=== PATIENT | male | born 1975 | race Caucasian/White ===

== ENCOUNTER 2019-07-12 21:32 | Emergency (ER) | payer SELFPAY ==
[2019-07-12 21:50] VITALS: BP 133/81
[2019-07-13] MEDS ORDERED: cephALEXin 500 MG CAP PO STA (02:20)
--- NOTE | 2019-07-13 02:28 | Emergency Department Report ---
ED Lower Extremity HPI - General Chief Complaint: Wound/Laceration Stated Complaint: CUT BACK OF LEFT LEG Time Seen by Provider: 07/13/19 00:16 Source: patient Mode of arrival: Ambulatory Limitations: No Limitations - History of Present Illness MD Complaint: leg injury -: Sudden Injury: Leg: Left Type of Injury: laceration (WAS HIT BY AN air conditioner while he waS in tHE demolition stage of a renovation) Place: home Severity: mild Improves With: nothing Worsens With: nothing - Related Data Allergies Allergy/AdvReac Type Severity Reaction Status Date / Time iodine Allergy Swelling Verified 07/12/19 22:49 ED Review of Systems ROS: Stated complaint: CUT BACK OF LEFT LEG Other details as noted in HPI Comment: All other systems reviewed and negative ED Past Medical Hx - Past Medical History Previous Medical History?: No - Surgical History Past Surgical History?: Yes Additional Surgical History: Hernia repair - Social History Smoking Status: Current Every Day Smoker Substance Use Type: Marijuana ED Physical Exam - General Limitations: No Limitations General appearance: alert, in no apparent distress - Head Head exam: Present: atraumatic, normocephalic - Eye Eye exam: Present: normal appearance, PERRL, EOMI Pupils: Present: normal accommodation - ENT ENT exam: Present: normal exam, normal orophraynx, mucous membranes moist, TM's normal bilaterally - Neck Neck exam: Present: normal inspection, full ROM - Respiratory Respiratory exam: Present: normal lung sounds bilaterally. Absent: respiratory distress - Cardiovascular Cardiovascular Exam: Present: regular rate, normal rhythm. Absent: systolic murmur, diastolic murmur, rubs, gallop - GI/Abdominal GI/Abdominal exam: Present: soft, normal bowel sounds - Rectal Rectal exam: Present: deferred - Extremities Exam Extremities exam: Present: normal inspection, full ROM - Expanded Lower Extremity Exam Left Lower Leg exam: Present: tenderness, laceration (linear laceration to the l ateral aspect of the left lower leg full thickness involving some muscle but still has full range of motion of the foot. Pulses 2+ no foreign bodies were visualized laceration 8 cm) - Back Exam Back exam: Present: normal inspection - Neurological Exam Neurological exam: Present: alert, oriented X3 - Psychiatric Psychiatric exam: Present: normal affect, normal mood - Skin Skin exam: Present: warm, dry, intact, normal color. Absent: rash ED Course Vital Signs 07/12/19 21:49 Temperature 98.3 F Pulse Rate 83 Respiratory 18 Rate Blood Pressure 133/81 O2 Sat by Pulse 96 Oximetry - Procedure Description Procedures done: 44-year-old [place] male with left lower extremity laceration. Wound was prepped and draped in sterile fashion anesthesia achieved with 2% lidocaine with no epinephrine was 8 cm long and was copiously irrigated. Subcutaneous stitches were placed in simple interrupted fashion with 3-0 Vicryl 5. The wound was closed with 3-0 Prolene in simple interrupted fashion 8 with no complications estimated blood loss was less than 3 mL Critical care attestation.: If time is entered above; I have spent that time in minutes in the direct care of this critically ill patient, excluding procedure time. ED Disposition Clinical Impression: Laceration of leg Disposition: DC-01 TO HOME OR SELFCARE Is pt being admited?: No Does the pt Need Aspirin: No Condition: Stable Instructions: Laceration (ED), Suture Care (ED) Referrals: [facility] [Provider Group] - 3-5 Days
== END 2019-07-13 04:18 | disposition home or self-care (01) ==
LOC: ED 21:32
DX: S81.812A Laceration without foreign body, left lower leg, initial encounter (principal); F17.200 Nicotine dependence, unspecified, uncomplicated; F12.10 Cannabis abuse, uncomplicated; W22.8XXA Striking against or struck by other objects, initial encounter; Y93.89 Activity, other specified; Y92.89 Other specified places as the place of occurrence of the external cause; Y99.8 Other external cause status
CPT/HCPCS: 99282

== ENCOUNTER 2019-07-18 16:02 | Emergency (ER) | payer SELFPAY ==
[2019-07-18 16:29] VITALS: BP 122/77
== END 2019-07-18 22:31 | disposition left against medical advice (07) ==
LOC: ED 16:02
DX: Z53.21 Procedure and treatment not carried out due to patient leaving prior to being seen by health care provider (principal)

== ENCOUNTER 2019-07-23 09:56 | Emergency (ER) | payer SELFPAY ==
[2019-07-23 10:23] VITALS: BP 140/85
--- NOTE | 2019-07-23 10:23 | Emergency Department Report ---
Suture/Staple Removal - [facility] Chief Complaint: Laceration/Recheck/Suture Stated Complaint: SUTURE REMOVAL Time Seen by Provider: 07/23/19 10:04 When Sutures or Jose Placed: 11-14 Days Ago Wound Location: left leg ED Review of Systems ROS: Stated complaint: SUTURE REMOVAL Other details as noted in HPI Constitutional: denies: chills, fever Eyes: denies: eye pain, eye discharge, vision change ENT: denies: ear pain, throat pain Respiratory: denies: cough, shortness of breath, wheezing Cardiovascular: denies: chest pain, palpitations Endocrine: no symptoms reported Gastrointestinal: denies: abdominal pain, nausea, diarrhea Genitourinary: denies: urgency, dysuria Musculoskeletal: denies: back pain, joint swelling, arthralgia Skin: denies: rash, lesions Neurological: denies: headache, weakness, paresthesias Psychiatric: denies: anxiety, depression Hematological/Lymphatic: denies: easy bleeding, easy bruising ED Past Medical Hx - Surgical History Additional Surgical History: Hernia repair - Social History Smoking Status: Current Every Day Smoker Substance Use Type: Alcohol, Marijuana - Medications Home Medications: Home Medications Medication Instructions Recorded Confirmed Last Taken Type Chlorhexidine Gluconate [Hibiclens] 10 ml TP BID #240 liquid 07/13/19 Unknown Rx cephALEXin [Keflex] 500 mg PO Q6HR #30 capsule 07/13/19 Unknown Rx Suture Removal Exam - Exam General: Vital signs noted. No distress. Alert and acting appropriately. Wound: No Pathologic Erythema, No Tenderness, No Drainage, No Pus, No Wound Dehiscence Other Systems: All other systems reviewed and are unremarkable. ED Course - Reevaluation(s) Reevaluation #1: 07/23/19 10:24 Patient is speaking in full sentences with no signs of distress noted. ED Recheck MDM - Medical Decision Making This is a 44-year-old male that presents with suture removal. She is stable and was examined by me. Total of 8 sutures has been removed and patient tolerated well. No signs of wound dehiscence, drainage, or cellulitis. Patient was referred to Follow-up with a primary care doctor in 3-5 days or if symptoms worsen and continue return to emergency room as soon as possible. At time of discharge, the patient does not seem toxic or ill in appearance. No acute signs of distress noted. Patient agrees to discharge treatment plan of care. No further questions noted by the patient. Critical care attestation.: If time is entered above; I have spent that time in minutes in the direct care of this critically ill patient, excluding procedure time. ED Disposition Clinical Impression: Visit for suture removal Disposition: DC-01 TO HOME OR SELFCARE Is pt being admited?: No Does the pt Need Aspirin: No Condition: Stable Instructions: Suture Removal (ED) Additional Instructions: Follow-up with a primary care doctor in 3-5 days or if symptoms worsen and continue return to emergency room as soon as possible. Referrals: PRIMARY CARE, [Referring] - 3-5 Days ANTONIO BULL MD [Staff Physician] - 3-5 Days [facility] [Outside] - 3-5 Days [facility] [Outside] - 3-5 Days Forms: Work/School Release Form(ED)
== END 2019-07-23 11:04 | disposition home or self-care (01) ==
LOC: ED 09:56
DX: S81.812D Laceration without foreign body, left lower leg, subsequent encounter (principal); F17.200 Nicotine dependence, unspecified, uncomplicated; F12.10 Cannabis abuse, uncomplicated; Z91.040 Latex allergy status; X58.XXXD Exposure to other specified factors, subsequent encounter